=== PATIENT | male | born 1985 | race Caucasian/White ===

== ENCOUNTER 2020-09-24 15:34 | Emergency (ER) | payer SELFPAY ==
[2020-09-24 16:30] VITALS: BP 112/61; PULSE 100; RESP 20; TEMP 37.4; O2SAT 98; BMI 20.3
[2020-09-24 22:31] LABS: Hematocrit 39.2 % (42.0-52.0); Hemoglobin 12.8 g/dL (11.7-16.6); Mean Corpuscular HGB Conc 32.7 g/dL (30.0-36.0); Mean Corpuscular Hemoglobin 29.4 pg (28.0-34.0); Mean Corpuscular Volume 90.1 fL (80-94); Mean Platelet Volume 10.4 fL (7.4-10.4); Platelet Count 194 10^3/cmm (130-400); Red Blood Count 4.35 10^6/uL (4.1-5.3); Red Cell Distribution Width 12.2 % (12.1-15.1)
--- NOTE | 2020-09-24 22:37 | W.ED.GENADLT ---
HPI - General Adult General: Chief complaint: Urogenital-Male Stated complaint: pain all over body Time Seen by Provider: 09/24/20 22:05 History of Present Illness: HPI narrative: 35-year-old male reports complaints of generalized myalgias vomiting and diarrhea low-grade fever that started today. He has not had any anosmia. No dysuria urgency or frequency mild abdominal discomfort. No hematochezia melena hematemesis or coffee-ground emesis. Has not really noticed any shortness of breath and has only had a very slight cough. Onset (ago): hour(s) Severity: mild Quality: aching Pain Consistency: constant Relieving factors: none Exacerbating factors: none Associated symptoms: Reports cough, decreased appetite, fevers/chills, malaise, nausea, short of breath, vomiting and weakness; Deny chest pain, confusion, diaphoresis, dyspnea, headache(s), rash, palpitations, seizures or syncope Treatments prior to arrival: none Review of Systems Const: Reports: malaise; Denies: diaphoresis ENMT: Denies: throat pain, ear or mastoid pain, nasal discharge or nasal congestion Card: Denies: chest pain, palpitations or syncope Resp: Denies: dyspnea GI: Reports: nausea and vomiting : Denies: flank pain, dysuria, urinary frequency or urinary urgency Skin/Breast: Denies: rash Neuro: Denies: headache(s) or confusion Physical Exam Const: COMMON NORMALS: no acute distress GENERAL APPEARANCE: cooperative and comfortable ORIENTATION/CONSCIOUSNESS: Yes awake, Yes oriented to person, Yes oriented to place and Yes oriented to time HENMT: COMMON NORMALS: normocephalic, atraumatic and hearing grossly normal bilaterally HEAD & SCALP: normocephalic and atraumatic Neck/C-Spine: COMMON NORMALS: no JVD Resp: COMMON NORMALS: normal respiratory effort, No retractions, No use of accessory muscles and clear to auscultation bilaterally AUSCULTATION: clear to auscultation bilaterally Cardio: COMMON NORMALS: no JVD, regular rate, regular rhythm and No murmurs present (Cardio) RATE: regular rate RHYTHM: regular rhythm GI: COMMON NORMALS: Soft to palpation and No hepatosplenomegaly present AUSCULTATION: Yes normoactive bowel sounds PALPATION: Yes Soft to palpation, No Tenderness to palpation present (GI), No Guarding due to palpation present (GI) and Yes No hepatosplenomegaly present Extremity: COMMON NORMALS: normal to inspection, capillary refill normal, no clubbing, cyanosis or edema, no calf tenderness and no pedal edema Neuro: SENSORIUM/ORIENTATION: Yes oriented to person, Yes oriented to place and Yes oriented to time Skin: COMMON NORMALS: no rashes or lesions noted GENERAL SKIN EXAM: no rashes or lesions noted Course Vital Signs: Vital signs: Vital Signs Temperature 99.5 F 09/24/20 23:06 Pulse Rate 88 09/25/20 02:31 Respiratory Rate 16 09/25/20 02:31 Blood Pressure 100/62 09/25/20 02:31 Pulse Oximetry 98 09/25/20 02:31 MDM - General Adult MDM Narrative: Medical decision making narrative: PanelStable vital signs normal. Patient does have positive hepatitis C antibody. Will need further work-up, tick panel is pending as well as a Covid PCR rapid was negative. Return to the ER if has further problems. Lab Data: Labs: Lab Results 09/24/20 09/24/20 09/24/20 Range/Units 22:07 22:07 22:07 WBC 22.0 H (4.0-10.0) 10^3/ uL RBC 4.35 (4.1-5.3) 10^6/u L Hgb 12.8 (11.7-16.6) g/dL Hct 39.2 L (42.0-52.0) % MCV 90.1 (80-94) fL MCH 29.4 (28.0-34.0) pg MCHC 32.7 (30.0-36.0) g/dL RDW 12.2 (12.1-15.1) % Plt Count 194 (130-400) 10^3/c mm MPV 10.4 (7.4-10.4) fL Lymph % (Auto) Not Reportable [place] % (Auto) Not Reportable Lymph # (Auto) Not Reportable [place] # (Auto) Not Reportable Total Counted 100 (0-100) Atypical Lymphs % 2.0 (0-5) % Absolute Neutrophi ls 18.9 H (1.4-6.5) 10^3/c mm Segmented Neutroph ils 64 % Abs Segm Neuts (Ma n) 14.1 H (1.6-7.1) 10/cmm Band Neutrophils 22.0 % Abs Band Neuts (Ma n) 4.8 H (0.0-1.2) 10^3/c mm Absolute Lymphocyt es 0.4 L (1.2-3.4) 10^3/c mm Lymphocytes (Manua l) 0 % Monocytes (Manual) 1.0 % Absolute Monocytes 0.2 (0.1-0.6) 10^3/c mm Eosinophils (Manua l) 0 % Absolute Eosinophi ls 0.0 (0.0-0.7) 10^3/c mm Basophils (Manual) 0.0 % Absolute Basophils 0.0 (0.0-0.2) 10^3/c mm Metamyelocytes 11.0 % Platelet Estimate Normal (Normal) Sodium 131 L (136-145) mmol/L Potassium 3.7 (3.5-5.1) mmol/L Chloride 96 L (98-107) mmol/L Carbon Dioxide 23 (22-29) mmol/L Anion Gap 15.7 (5-19) BUN 16 (6-20) mg/dL Creatinine 1.0 (0.7-1.2) mg/dL GFR Calculation 85.5 L (90-130) mL/min Glucose 102 (65-115) mg/dL Calculated Osmolal ity 273 L (285-295) mOsm/k g Calcium 8.0 L (8.5-10.5) mg/dL Total Bilirubin 1.7 H (0.15-1.2) mg/dL AST 204 H (0-40) U/L ALT 100 H (0-41) U/L Alkaline Phosphata se 159 H (40-130) IU/L Total Protein 5.8 L (6.6-8.7) g/dL Albumin 3.4 L (3.5-5.2) g/dL Globulin 2.4 (1.3-4.6) g/dL Lipase 17 (13-60) U/L Urine Color (Yellow) Urine Appearance (CLEAR) Urine pH (5-7) Ur Specific Gravit y (1.005-1.030) Urine Protein (Negative) Urine Glucose (UA) (Normal) Urine Ketones (Negative) Urine Blood (Negative) Urine Nitrate (Negative) Urine Bilirubin (Negative) Urine Urobilinogen (Negative) mg/dL Ur Leukocyte Lilly ase (Negative) Lyme Ab (Western B lot) index Hepatitis A IgM Ab (Nonreactive) Hep Bs Antigen (Nonreactive) Hep B Core IgM Ab (Nonreactive) Hepatitis C Antibo dy (Nonreactive) SARS-CoV-2 Ag (Rap id) Negative (Negative) 09/24/20 09/24/20 09/25/20 Range/Units 22:07 23:31 00:29 WBC (4.0-10.0) 10^3/ uL RBC (4.1-5.3) 10^6/u L Hgb (11.7-16.6) g/dL Hct (42.0-52.0) % MCV (80-94) fL MCH (28.0-34.0) pg MCHC (30.0-36.0) g/dL RDW (12.1-15.1) % Plt Count (130-400) 10^3/c mm MPV (7.4-10.4) fL Lymph % (Auto) [place] % (Auto) Lymph # (Auto) [place] # (Auto) Total Counted (0-100) Atypical Lymphs % (0-5) % Absolute Neutrophi ls (1.4-6.5) 10^3/c mm Segmented Neutroph ils % Abs Segm Neuts (Ma n) (1.6-7.1) 10/cmm Band Neutrophils % Abs Band Neuts (Ma n) (0.0-1.2) 10^3/c mm Absolute Lymphocyt es (1.2-3.4) 10^3/c mm Lymphocytes (Manua l) % Monocytes (Manual) % Absolute Monocytes (0.1-0.6) 10^3/c mm Eosinophils (Manua l) % Absolute Eosinophi ls (0.0-0.7) 10^3/c mm Basophils (Manual) % Absolute Basophils (0.0-0.2) 10^3/c mm Metamyelocytes % Platelet Estimate (Normal) Sodium (136-145) mmol/L Potassium (3.5-5.1) mmol/L Chloride (98-107) mmol/L Carbon Dioxide (22-29) mmol/L Anion Gap (5-19) BUN (6-20) mg/dL Creatinine (0.7-1.2) mg/dL GFR Calculation (90-130) mL/min Glucose (65-115) mg/dL Calculated Osmolal ity (285-295) mOsm/k g Calcium (8.5-10.5) mg/dL Total Bilirubin (0.15-1.2) mg/dL AST (0-40) U/L ALT (0-41) U/L Alkaline Phosphata se (40-130) IU/L Total Protein (6.6-8.7) g/dL Albumin (3.5-5.2) g/dL Globulin (1.3-4.6) g/dL Lipase (13-60) U/L Urine Color Yellow (Yellow) Urine Appearance Clear (CLEAR) Urine pH 7 (5-7) Ur Specific Gravit y 1.000 L (1.005-1.030) Urine Protein Neg (Negative) Urine Glucose (UA) Norm (Normal) Urine Ketones Negative (Negative) Urine Blood Neg (Negative) Urine Nitrate Negative (Negative) Urine Bilirubin 1+ H (Negative) Urine Urobilinogen 4+ H (Negative) mg/dL Ur Leukocyte Lilly ase Negative (Negative) Lyme Ab (Western B lot) <0.90 index Hepatitis A IgM Ab Non-reactive (Nonreactive) Hep Bs Antigen Non-reactive (Nonreactive) Hep B Core IgM Ab Non-reactive (Nonreactive) Hepatitis C Antibo dy Reactive H (Nonreactive) SARS-CoV-2 Ag (Rap id) (Negative) Discharge Plan Discharge Patient Disposition: Home Clinical Impression: Elevated liver enzymes, Suspected 2019-nCoV infection Condition: Stable Prescriptions: New Zofran 4 mg tablet 4 mg PO Q6H PRN (Reason: nausea and vomiting) Qty: 20 RF: 0 Discharge Orders: Discharge ED (Routine); Ordered 09/25/20 Ordered By: Rudolph Max Discharge Diet: Clear Liquid Discharge Activity: Increase activity as tolerated Patient Instructions: Opioid Safety Activity Restrictions/Additional Instructions: Clear liquid diet for the next 2 to 3 days. Advance as tolerated. A Covid test is pending recommend that you self quarantine until that is resulted. We also did a tick panel and hepatitis panel results will be called to you. If you have worsening symptoms return. Coding Level of Care Code ED Mechanical Test Technician for Chg Fwd Exam Comprehensive
[2020-09-24 22:48] LABS: Alanine Aminotransferase 100 U/L (0-41); Albumin Level 3.4 g/dL (3.5-5.2); Alkaline Phosphatase 159 IU/L (40-130); Anion Gap 15.7 (5-19); Aspartate Amino Transferase 204 U/L (0-40); Blood Urea Nitrogen 16 mg/dL (6-20); Carbon Dioxide 23 mmol/L (22-29); Chloride 96 mmol/L (98-107); Globulin 2.4 g/dL (1.3-4.6); Glomerular Filtration Rate 85.5 mL/min (90-130); Glucose 102 mg/dL (65-115); Lipase 17 U/L (13-60); Osmolality Calculated 273 mOsm/kg (285-295); Potassium 3.7 mmol/L (3.5-5.1); Sodium 131 mmol/L (136-145); Total Bilirubin 1.7 mg/dL (0.15-1.2); Total Protein 5.8 g/dL (6.6-8.7)
[2020-09-24 22:55] LABS: SARS Covid-2 Antigen Negative (Negative)
[2020-09-24 22:58] LABS: Absolute Neutrophil 18.9 10^3/cmm (1.4-6.5); Absolute Segmented Neutrophil 14.1 10/cmm (1.6-7.1); Band Neutrophils Absolute 4.8 10^3/cmm (0.0-1.2); Eosinophils 0 %; Lymphocytes 0 %; Lymphocytes Absolute 0.4 10^3/cmm (1.2-3.4); Monocytes Absolute 0.2 10^3/cmm (0.1-0.6); Platelet Estimate Normal (Normal); Segmented Neutrophils 64 %; Slide Review Slide Review Perform; Total Cells Counted 100 (0-100)
[2020-09-24] MEDS: acetaminophen 325 mg Tablet 650 MG PO (23:03)
[2020-09-24] MEDS: sodium chloride 0.9% 1,000 ML 999 ML IV (23:04)
[2020-09-24] MEDS: ketorolac 30 mg/mL INJ IVP (23:04)
--- NOTE | 2020-09-24 23:05 | USR_ITS ---
PROCEDURE INFORMATION: Exam: US Abdomen, Limited; Right Upper Quadrant Exam date and time: 09/24/2020 11:05 PM Age: 35 years old Clinical indication: Abdominal pain; Additional info: [id number] TECHNIQUE: Imaging protocol: US abdomen. Real time ultrasound with image documentation. Limited exam focused on the right upper quadrant. COMPARISON: No relevant prior studies available. FINDINGS: Liver: The liver parenchyma is within normal limits for contour and echogenicity. Mild intrahepatic biliary dilation in the left hepatic lobe. Gallbladder: The gallbladder is unremarkable. No gallstones, sludge, gallbladder wall thickening, or pericholecystic fluid identified. Sonographic Epstein sign is present. Common bile duct: The common bile duct is within normal limits for caliber at 0.5 cm. No common bile duct stone identified. Pancreas: Limited visualization of the pancreas due to bowel gas. Visualized portion is unremarkable. Right kidney: The right kidney measures 10.8 cm in length and is unremarkable. No hydronephrosis, calculi, or masses identified involving the right kidney. Aorta: Visualized portions of the aorta are unremarkable. Inferior vena cava: Visualized portions of the inferior vena cava are unremarkable. US/US gall bladder 13614 IMPRESSION: 1. Mild intrahepatic biliary dilation in the left hepatic lobe. 2. No gallstones identified.
[2020-09-24 23:06] VITALS: BP 106/57; PULSE 90; RESP 18; TEMP 37.5; O2SAT 100
[2020-09-25 00:29] VITALS: BP 106/58; PULSE 80; RESP 16; O2SAT 100
[2020-09-25 00:35] LABS: Add Urine Microscopic? NO; Charge for UA Resulting for Rev
[2020-09-25 00:42] LABS: Bilirubin Urine 1+ (Negative); Blood Urine Neg (Negative); Glucose Urine UA Norm (Normal); Ketones Urine Negative (Negative); Leukocyte Esterase Urine Negative (Negative); Nitrate Urine Negative (Negative); Protein Urine Neg (Negative); Urine Appearance Clear (CLEAR); Urine Color Yellow (Yellow); Urobilinogen Urine 4+ mg/dL (Negative); pH Urine 7 (5-7)
--- NOTE | 2020-09-25 01:09 | XRR_ITS ---
PROCEDURE INFORMATION: Exam: XR Chest Exam date and time: 09/25/2020 1:09 AM Age: 35 years old Clinical indication: Cough; Additional info: Dyspnea/cough TECHNIQUE: Imaging protocol: XR of the chest. Views: 1 view. COMPARISON: No relevant prior studies available. FINDINGS: Lungs: The lungs are clear bilaterally. Pulmonary vasculature within normal limits. Pleural space: No visible pneumothorax or pleural effusion. Heart/Mediastinum: Cardiomediastinal silhouette contour within normal limits. Bones/joints: No emergent findings identified. XR/XR chest 1V portable [id number] IMPRESSION: 1. No radiographic findings of acute cardiopulmonary disease.
[2020-09-25 02:22] LABS: Hepatitis A Antibody IgM Non-Reactive (Nonreactive); Hepatitis B Core IgM Non-Reactive (Nonreactive); Hepatitis B Surface Antigen Non-Reactive (Nonreactive); Hepatitis C Virus Antibody Reactive (Nonreactive)
[2020-09-25 02:31] VITALS: BP 100/62; PULSE 88; RESP 16; O2SAT 98
[2020-09-26 13:47] LABS: Lyme AB Screen <0.90 index
[2020-09-29 17:32] LABS: RMSF IGG NOT DETECTED; RMSF IGM NOT DETECTED
[2020-09-30 15:22] LABS: E. Chaffeensis AB IGG <1:64; E. Chaffeensis AB IGM <1:20
== END 2020-09-25 03:07 | disposition home or self-care (01) ==
PROVIDERS: Nurse Practitioner Family; Emergency Provider Family Medicine
DX: R74.8 Abnormal levels of other serum enzymes (principal)
CPT/HCPCS: 36415; 71045; 76705; 80053; 80074; 81003; 83690; 85007; 85025; 86618; 86666; 86757; 87426; 96361; 96374; 99284; J1885; J7030